=== PATIENT | female | born 1995 | race American Indian/Alaskan Native ===

== ENCOUNTER 2018-01-04 22:05 | Emergency (ER) | payer MEDICAID, OTHER ==
[2018-01-04 22:05] VITALS: BMI 16.2
[2018-01-04 22:16] VITALS: BP 131/81; PULSE 68; RESP 16; TEMP 98.6; O2SAT 99
[2018-01-04] MEDS ORDERED: cefTRIAXone (Rocephin) 250 mg Inj IM ONE (22:19)
--- NOTE | 2018-01-04 22:28 | ED PDOC ---
HPI: Female Pain Time Seen by Provider: 01/04/18 22:15 Chief Complaint (Nursing): Female Genitourinary Chief Complaint (Provider): vaginal discharg History Per: Patient History/Exam Limitations: no limitations Onset/Duration Of Symptoms: Days (1) Current Symptoms Are (Timing): Still Present Additional History Per: Patient Additional Complaint(s): 22 y/o female presents with yellow-tinged vaginal discharge x 1 day. Patient states she was recently notified by ex boyfriend that he is having penile discharge and could have an STD. Last sexual intercourse encounter 3 weeks ago. Denies fever, nausea/vomiting, chest pain, abdominal/pelvic pain, dysuria , hemturia, vaginal bleeding, new sexual partners. Past Medical History Reviewed: Historical Data, Nursing Documentation, Vital Signs Vital Signs: Last Vital Signs Temp 98.6 F 01/04/18 22:12 Pulse 68 01/04/18 22:12 Resp 16 01/04/18 22:12 BP 131/81 01/04/18 22:12 Pulse Ox 99 01/04/18 22:12 - Medical History PMH: No Chronic Diseases Denies: Diabetes, Hepatitis, HIV, HTN, Seizures, Sexually Transmitted Disease - Surgical History Surgical History: No Surg Hx - Family History Family History: States: Unknown Family Hx - Immunization History Hx Tetanus Toxoid Vaccination: No Hx Influenza Vaccination: No Hx Pneumococcal Vaccination: No - Home Medications Home Medications: Ambulatory Orders Medication Instructions Recorded No Known Home Med 11/26/17 - Allergies Allergies/Adverse Reactions: Allergies Allergy/AdvReac Type Severity Reaction Status Date / Time No Known Allergies Allergy Verified 07/18/15 14:34 Review of Systems ROS Statement: Except As Marked, All Systems Reviewed And Found Negative Genitourinary Female: Positive for: Vaginal Discharge Physical Exam - Reviewed Nursing Documentation Reviewed: Yes Vital Signs Reviewed: Yes - Physical Exam Appears: Positive for: Well, Non-toxic, No Acute Distress Head Exam: Positive for: ATRAUMATIC, NORMAL INSPECTION, NORMOCEPHALIC Skin: Positive for: Normal Color Cardiovascular/Chest: Positive for: Regular Rate, Rhythm Respiratory: Positive for: Normal Breath Sounds Gastrointestinal/Abdominal: Positive for: Normal Exam, Bowel Sounds, Soft. Negative for: Tenderness Pelvic Exam: Positive for: External Exam Normal, No Cerv. 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 Return precautions given. Disposition - Clinical Impression Clinical Impression: Vaginal discharge, Concern about STD in female without diagnosis - Patient ED Disposition Is Patient to be Admitted: No Counseled Patient/Family Regarding: Studies Performed, Diagnosis, Need For Followup - Disposition [facility] Disposition: Routine/Home Disposition Time: 22:46 Condition: GOOD Instructions: Vaginal Discharge in Adults
[2018-01-04] MEDS ORDERED: cefTRIAXone (Rocephin) 250 mg Inj ONE (22:50)
== END 2018-01-04 23:36 | disposition home or self-care (01) ==
LOC: H.ER 22:05
DX: N89.8 Other specified noninflammatory disorders of vagina (principal)
CPT/HCPCS: 81025; 87070; 87491; 87591; 96372; 99282; J0696

== ENCOUNTER 2018-04-02 23:34 | Emergency (ER) | payer MEDICAID ==
[2018-04-02 23:35] VITALS: BMI 16.2
[2018-04-03] MEDS ORDERED: Fluconazole 150 MG TAB PO ONE (01:12)
[2018-04-03] MEDS ORDERED: cefTRIAXone (Rocephin) 250 mg Inj IM STA (01:12)
--- NOTE | 2018-04-03 01:16 | ED PDOC ---
HPI: Female Pain Time Seen by Provider: 04/02/18 23:54 Chief Complaint (Nursing): Female Genitourinary Chief Complaint (Provider): Female Genitourinary History Per: Patient History/Exam Limitations: no limitations Onset/Duration Of Symptoms: Hrs (x24 hours) Current Symptoms Are (Timing): Still Present Additional Complaint(s): 23 y/o female with no significant pmhx, who presents to the ED for evaluation of a Bartholin's gland abscess x24 hours. Patient states shes had one in the past which required an I&D. Patient is also reporting a thick white vaginal discharged associated with irritation ongoing for the past few days. Patient states she was recently exposed to an unknown STD. She says her boyfriend told her today that he has an STD, but refuse to divulge what type of STD and if he has received treatment for it. Denies fever, chills, abdominal pain, rashes, and lesion to the genital area. PMD: None provided Past Medical History Reviewed: Historical Data, Nursing Documentation, Vital Signs Vital Signs: Last Vital Signs Temp 98.8 F 04/02/18 23:46 Pulse 77 04/02/18 23:46 Resp 16 04/02/18 23:46 BP 138/88 04/02/18 23:46 Pulse Ox 98 04/02/18 23:46 - Medical History PMH: No Chronic Diseases Denies: Diabetes, Hepatitis, HIV, HTN, Seizures, Sexually Transmitted Disease - Surgical History Surgical History: No Surg Hx - Family History Family History: States: Unknown Family Hx - Immunization History Hx Tetanus Toxoid Vaccination: No Hx Influenza Vaccination: No Hx Pneumococcal Vaccination: No - Home Medications Home Medications: Ambulatory Orders Medication Instructions Recorded Cephalexin [Keflex] 500 mg PO Q6 #28 capsule 04/03/18 Sulfamethoxazole/Trimethoprim 2 tab PO BID #28 tab 04/03/18 [Bactrim DS 800 mg-160 mg] - Allergies Allergies/Adverse Reactions: Allergies Allergy/AdvReac Type Severity Reaction Status Date / Time grass pollen Allergy ITCHING Verified 04/02/18 23:45 Review of Systems ROS Statement: Except As Marked, All Systems Reviewed And Found Negative Constitutional: Negative for: Fever, Chills Gastrointestinal: Negative for: Abdominal Pain Genitourinary Female: Positive for: Vaginal Discharge, Other (Bartholin's gland abscess to right labia) Skin: Negative for: Rash, Lesions Physical Exam - Reviewed Nursing Documentation Reviewed: Yes Vital Signs Reviewed: Yes - Physical Exam Comments: GENERAL APPEARANCE: Patient is awake, alert, oriented x 3, in no acute distress. CHEST AND RESPIRATORY: (-) chest wall tenderness. Lungs: (-) rales, (-) rhonchi , (-) wheezes; breath sounds equal bilaterally. HEART AND CARDIOVASCULAR: (-) irregularity; (-) murmur, (-) gallop. ABDOMEN AND GI: Soft, (-) tenderness. PELVIC: (+) Bartholin's gland abscess that is soft, tender, and flunctuant to right labia. Speculum exam: (+) thick, white, curd-like discharge. broadcast technicianoscar Kelsey was present as educational resource coordinator. NEURO AND PSYCH: Mental status as above; (-) focal findings. - ECG O2 Sat by Pulse Oximetry: 98 (RA) Pulse Ox Interpretation: Normal Medical Decision Making Medical Decision Making: Initial Impression: Bartholins gland abscess and vaginal candidiasis Plan: --Chlamydia/GC RNA, TMA --Diflucan 150mg PO --Rocephin 250mg IM --Zithromax 1,000mg PO --Zofran 4mg PO --Urine culture --Urine [facility] (-). I&D done by NUNU. Patient tolerated the procedure well. Advised to follow up with primary care physician/breaker up in 1-2 days without fail. Advised to take medication as prescribed. Return to the emergency room at any time for any new or worsening symptoms. Patient states she fully agrees with and understands discharge instructions. States that she agrees with the plan and disposition. Verbalized and repeated discharge instructions and plan. I have given the patient opportunity to ask any additional questions. Scribe Attestation: Documented by Tashi Caro, acting as a scribe for Nedra Talamantes PA-C. Provider Scribe Attestation: All medical record entries made by the Scribe were at my direction and personally dictated by me. I have reviewed the chart and agree that the record accurately reflects my personal performance of the history, physical exam, medical decision making, and the department course for this patient. I have also personally directed, reviewed, and agree with the discharge instructions and disposition. Procedures - Incision and Drainage Site: R labia Blade Size: 11 I & D Procedure: betadine prep, sterile drapes applied Progress: 8 cc of purulent material drained. Packing inserted into the wound. Disposition - Clinical Impression Clinical Impression: Concern about STD in female without diagnosis, Vaginal candidiasis, Bartholin' s gland abscess - Patient ED Disposition Is Patient to be Admitted: No - Disposition Referrals: [facility] [Outside] Mau Calderon [Staff Provider] - Disposition: Routine/Home Disposition Time: 02:00 Condition: STABLE Additional Instructions: Thank you for letting us take care of you today. You were treated for vaginal candidiasis, exposure to unknown STD, bartholin's gland abscess. The emergency medical care you received today was directed at your acute symptoms. If you were prescribed any medication, please fill it and take as directed. It may take several days for your symptoms to resolve. Return to the Emergency Department if your symptoms worsen, do not improve, or if you have any other problems. Please contact your doctor in 2 days for re-evaluation and follow up / or call one of the physicians/clinics you have been referred to that are listed on the Patient Visit Information form that is included in your discharge packet. Bring any paperwork you were given at discharge with you along with any medications you are taking to your follow up visit. Our treatment cannot replace ongoing medical care by a primary care provider (PCP) outside of the emergency department. Thank you for allowing the [facility] team to be part of your care today. If you had a STD test done : We will call you regarding any positive results Prescriptions: Cephalexin [Keflex] 500 mg PO Q6 #28 capsule Sulfamethoxazole/Trimethoprim [Bactrim DS 800 mg-160 mg] 2 tab PO BID #28 tab Instructions: Vulvovaginal Yeast Infection, Bartholin's Gland Cyst Forms: [facility] (Tajik)
[2018-04-03 02:50] VITALS: BP 118/85; PULSE 90; RESP 18
[2018-04-03 02:55] VITALS: TEMP 98.5
[2018-04-03 04:17] VITALS: O2SAT 98
== END 2018-04-03 02:54 | disposition home or self-care (01) ==
LOC: H.ER 23:34
DX: N75.1 Abscess of Bartholin's gland (principal); B37.3 Candidiasis of vulva and vagina
CPT/HCPCS: 81025; 87086; 96372; 99283; J0696

== ENCOUNTER 2018-07-28 11:48 | Emergency (ER) | payer MEDICAID ==
[2018-07-28 11:48] VITALS: BMI 16.2
[2018-07-28 11:53] VITALS: PULSE 86; RESP 18; TEMP 97; O2SAT 100
--- NOTE | 2018-07-28 12:31 | ED PDOC ---
HPI: Eye Injury/Pain Time Seen by Provider: 07/28/18 12:09 Chief Complaint (Nursing): ENT Problem Chief Complaint (Provider): Right eye injury History Per: Patient History/Exam Limitations: no limitations Onset/Duration Of Symptoms: Days (x4) Current Symptoms Are (Timing): Still Present Wears Contact Lens?: No Associated Symptoms: Pain (mild), Other (redness) Additional Complaint(s): Lillian Macias is a 23 year old female, with no significant past medical history , who presents to the emergency department for evaluation of redness and pain to the right eye onset x4 days ago. Patient states she was play fighting when she was hit in the right eye, she had some mild pain at the time. However, she reports symptoms have worsened over the last couple of days. She denies any other medical complaints. PMD: Robyn Muñoz Past Medical History Reviewed: Historical Data, Nursing Documentation, Vital Signs Vital Signs: Last Vital Signs Temp 97 F L 07/28/18 11:50 Pulse 86 07/28/18 11:50 Resp 18 07/28/18 11:50 BP Pulse Ox 100 07/28/18 11:50 - Medical History PMH: No Chronic Diseases Denies: Diabetes, Hepatitis, HIV, HTN, Seizures, Sexually Transmitted Disease - Surgical History Surgical History: No Surg Hx - Family History Family History: States: Unknown Family Hx - Immunization History Hx Tetanus Toxoid Vaccination: No Hx Influenza Vaccination: No Hx Pneumococcal Vaccination: No - Home Medications Home Medications: Ambulatory Orders Medication Instructions Recorded Cephalexin [Keflex] 500 mg PO Q6 #28 capsule 04/03/18 Sulfamethoxazole/Trimethoprim 2 tab PO BID #28 tab 04/03/18 [Bactrim DS 800 mg-160 mg] - Allergies Allergies/Adverse Reactions: Allergies Allergy/AdvReac Type Severity Reaction Status Date / Time grass pollen Allergy ITCHING Verified 07/28/18 11:53 Review of Systems ROS Statement: Except As Marked, All Systems Reviewed And Found Negative Eyes: Positive for: Pain (right), Redness (right ) Physical Exam - Reviewed Nursing Documentation Reviewed: Yes Vital Signs Reviewed: Yes - Physical Exam Appears: Positive for: No Acute Distress Head Exam: Positive for: ATRAUMATIC, NORMOCEPHALIC Skin: Positive for: Normal Color, Warm, Dry Eye Exam: Positive for: EOMI, PERRL, Other (Fluorescein test negative uptake. Mild injection. No hyphema. ) Neck: Positive for: Painless ROM Respiratory: Negative for: Respiratory Distress Extremity: Positive for: Normal ROM (upper and lower extremities). Negative for : Deformity, Swelling Neurologic/Psych: Positive for: Alert, Oriented - ECG O2 Sat by Pulse Oximetry: 100 (RA) Pulse Ox Interpretation: Normal Medical Decision Making Medical Decision Making: Time: 12:09 Initial Impression: right eye injury Initial Plan: -Negative uptake on Fluorescein stain. Will do visual acuity test and speak with [employer] senior mobile application developer, Dr. Reyes 13:40 -Visual acuity test is 20/15 and 20/13. 13:45 -Exam as above, c/w traumatic iritis. Case discussed with Dr. Reyes optho senior mobile application developer. Dr. Reyes agrees with starting predforte eye drops and will see pt. in office tomorrow at 10am. Predforte drops (1drop) instilled with instruction to continue one drop BID until further advised by optho. Stressed importance of close f/u, agrees to f/u tomorrow. Counseling was provided and all questions were answered regarding diagnosis and need for follow up with [employer]. There is agreement to discharge plan. Return if symptoms persist or worsen. Scribe Attestation: Documented by Todd Christina, acting as a scribe for Mariah Salinas PA-C Provider Scribe Attestation: All medical record entries made by the Scribe were at my direction and personally dictated by me. I have reviewed the chart and agree that the record accurately reflects my personal performance of the history, physical exam, medical decision making, and the department course for this patient. I have also personally directed, reviewed, and agree with the discharge instructions and disposition. Disposition - Clinical Impression Clinical Impression: Traumatic iritis - Patient ED Disposition Is Patient to be Admitted: No Discussed With DrOmkar: Sona Reyes Doctor Will See Patient In The: Office - Disposition Disposition: Routine/Home Disposition Time: 13:45 Condition: STABLE Instructions: Uveitis Forms: [facility] (Eth[place]ian), [facility] ED School/Work Excuse
[2018-07-28] MEDS ORDERED: PROPARACAINE/FLUORESCEIN SOD 100 DROP/5 ML BOTTLE ONE (12:42)
[2018-07-28] MEDS ORDERED: PrednisoLONE 1% OPTH SUSP OD SCH (17:00)
== END 2018-07-28 15:09 | disposition home or self-care (01) ==
LOC: H.ER 11:48
DX: H20.9 Unspecified iridocyclitis (principal); Y93.83 Activity, rough housing and horseplay

== ENCOUNTER 2018-11-25 11:19 | Emergency (ER) | payer MEDICAID ==
[2018-11-25 11:19] VITALS: BMI 16.2
[2018-11-25 11:32] VITALS: BP 133/88; PULSE 67; RESP 16; TEMP 97.6; O2SAT 100
[2018-11-25] MEDS ORDERED: Tdap Vaccine 0.5 ml Vial (10-64 yrs) IM ONE ×2 (12:24→12:41)
--- NOTE | 2018-11-25 12:27 | ED PDOC ---
HPI: Head Injury Time Seen by Provider: 11/25/18 12:25 Chief Complaint (Nursing): Trauma Chief Complaint (Provider): head injury History Per: Patient (23 y/o female here with head injury that occurred after she struck head against edge of box at work today. No LOC. Notes injury to scalp bleeding and feels shaky. Notes mild headache. Denies any N/V/confusion. Has h/o bipolar disoder on lithium.) Past Medical History Reviewed: Historical Data, Nursing Documentation, Vital Signs Vital Signs: Last Vital Signs Temp 97.6 F 11/25/18 11:29 Pulse 67 11/25/18 11:29 Resp 16 11/25/18 11:29 BP 133/88 11/25/18 11:29 Pulse Ox 100 11/25/18 11:29 - Medical History PMH: Denies: Diabetes, Hepatitis, HIV, HTN, Seizures, Sexually Transmitted Disease - Family History Family History: States: Unknown Family Hx - Immunization History Hx Tetanus Toxoid Vaccination: No Hx Influenza Vaccination: No Hx Pneumococcal Vaccination: No - Home Medications Home Medications: Ambulatory Orders Medication Instructions Recorded Cephalexin [Keflex] 500 mg PO Q6 #28 capsule 04/03/18 Sulfamethoxazole/Trimethoprim 2 tab PO BID #28 tab 04/03/18 [Bactrim DS 800 mg-160 mg] - Allergies Allergies/Adverse Reactions: Allergies Allergy/AdvReac Type Severity Reaction Status Date / Time grass pollen Allergy ITCHING Verified 11/25/18 11:27 Review of Systems ROS Statement: Except As Marked, All Systems Reviewed And Found Negative Physical Exam - Reviewed Nursing Documentation Reviewed: Yes Vital Signs Reviewed: Yes - Physical Exam Appears: Positive for: Well, Non-toxic, No Acute Distress Head Exam: Positive for: NORMAL INSPECTION, NORMOCEPHALIC. Negative for: ATRAUMATIC (Small punctate abrasion noted on superior aspect of scalp.) Skin: Positive for: Normal Color, Warm, DRY Eye Exam: Positive for: EOMI, Normal appearance, PERRL ENT: Positive for: Normal ENT Inspection Neck: Positive for: Normal, Painless ROM Cardiovascular/Chest: Positive for: Regular Rate, Rhythm Respiratory: Positive for: CNT, Normal Breath Sounds Gastrointestinal/Abdominal: Positive for: Normal Exam, Soft Back: Positive for: Normal Inspection Extremity: Positive for: Normal ROM Neurologic/Psych: Positive for: Alert, Oriented - ECG O2 Sat by Pulse Oximetry: 100 - Progress ED Course And Treament: D/W patient pros and cons of Head CT evaluation of head injury. Tdap 0.5 ml IM x 1 dose tylenol 650 mg x [address]: NO ACUTE INTRACRANIAL HEMORRHAGE. Disposition - Clinical Impression Clinical Impression: Closed head injury, Abrasion - Patient ED Disposition Is Patient to be Admitted: No - Disposition Disposition: Routine/Home Disposition Time: 13:46 Condition: FAIR Instructions: Minor Head Injury (DC) Forms: [facility] ED School/Work Excuse
--- NOTE | 2018-11-25 13:46 | CT ---
Date of service: 11/25/2018 PROCEDURE: CT HEAD WITHOUT CONTRAST. HISTORY: HEAD INJURY. COMPARISON: None available. TECHNIQUE: Axial computed tomography images were obtained through the head/brain without intravenous contrast. Radiation dose: Total exam DLP = 761.81 mGy-cm. This CT exam was performed using one or more of the following dose reduction techniques: Automated exposure control, adjustment of the mA and/or kV according to patient size, and/or use of iterative reconstruction technique. FINDINGS: HEMORRHAGE: No acute parenchymal, subarachnoid nor extra-axial hemorrhage. BRAIN: No mass effect or edema. No atrophy or chronic microvascular ischemic changes. VENTRICLES: No obstructive hydrocephalus. CALVARIUM: Unremarkable. PARANASAL SINUSES: Unremarkable as visualized. No significant inflammatory changes. MASTOID AIR CELLS: Unremarkable as visualized. No inflammatory changes. OTHER FINDINGS: None. IMPRESSION: No acute intracranial hemorrhage.
== END 2018-11-25 13:57 | disposition home or self-care (01) ==
LOC: H.ER 11:19
DX: S09.90XA Unspecified injury of head, initial encounter (principal); S00.01XA Abrasion of scalp, initial encounter; W22.8XXA Striking against or struck by other objects, initial encounter; Y99.0 Civilian activity done for income or pay